=== PATIENT | male | born 1970 | race Caucasian/White ===

== ENCOUNTER 2017-08-15 14:32 | Inpatient (IN) | payer OTHER ==
[~2017-08-15] VITALS: Ht 177.8 cm; Wt 150.9 kg
[2017-08-15] MEDS ORDERED: LISI-661 PO (14:39)
[2017-08-15] MEDS ORDERED: HALO5TAB2 PO (14:39)
[2017-08-15] MEDS ORDERED: SIMV-261 PO (14:39)
[2017-08-15] MEDS ORDERED: DIVA500T52 PO (14:39)
[2017-08-15] MEDS ORDERED: METF500T7 PO (14:39)
[2017-08-15] MEDS ORDERED: INSU100V12 SQ (14:39)
[2017-08-15] MEDS ORDERED: SILD25 PO (14:39)
[2017-08-15] MEDS ORDERED: INSU100I15 SQ (14:39)
[2017-08-15 15:08] LABS: BASOPHILS % (AUTO) 0.8 % (0.0-2.0); HEMATOCRIT 43.7 % (41-53); HEMOGLOBIN 15.2 g/dL (13.5-17.5); LYMPHOCYTES # (AUTO) 2.2 K/uL (1.0-4.8); LYMPHOCYTES % (AUTO) 27.9 % (22.0-44.0); MEAN CORPUSCULAR HEMOGLOBIN 30.3 pg (26.0-34.0); MEAN CORPUSCULAR HGB CONC 34.9 G/dL (31.0-37.0); MEAN CORPUSCULAR VOLUME 87 fL (80-100); MONOCYTES # (AUTO) 0.4 K/uL (0.1-1.0); MONOCYTES % (AUTO) 5.3 % (2.0-9.0); NEUTROPHILS # (AUTO) 5.1 K/uL (1.8-7.7); PLATELET COUNT (AUTO) 211 K/uL (150-450); RED BLOOD CELL COUNT(AUTO) 5.02 MIL/uL (4.50-5.90); RED CELL DISTRIBUTION WIDTH 14.4 % (11.5-14.5)
[2017-08-15 15:19] LABS: ANION GAP 8 mmol/L (8-16); CALCIUM, TOTAL 8.7 mg/dL (8.8-10.5); CARBON DIOXIDE 29 mmol/L (22-29); CHLORIDE 96 mmol/L (98-107); CREATININE 0.84 mg/dL (0.60-1.30); GLOMERULAR FILTR. RATE CALC > 60 mL/min (>60); GLUCOSE,RANDOM 108 mg/dL (70-110); POTASSIUM 4.5 mmol/L (3.5-5.1); SODIUM SERUM 133 mmol/L (136-145); UREA NITROGEN, BLOOD 16 mg/dL (7-18)
[2017-08-15 15:22] LABS: VALPROIC ACID 30 mcg/mL (50-100)
[2017-08-15 15:30] LABS: ALANINE AMINOTRANSFERASE 58 U/L (12-78); ALBUMIN 3.4 g/dL (3.4-5.0); ALKALINE PHOSPHATASE 136 U/L (46-116); ASPARTATE AMINOTRANSFERASE 36 U/L (15-37); TOTAL PROTEIN, SERUM 8.2 g/dL (6.4-8.2)
[2017-08-15] MEDS ORDERED: LORazepam 2 MG/ML VIAL IM ONE (16:30)
[2017-08-15] MEDS ORDERED: HALOPERIDOL LACTATE 5 MG/ML VIAL IM ONE (16:30)
[2017-08-15] MEDS ORDERED: DiphenhydrAMINE HCL 50 MG/ML VIAL IM ONE (16:30)
[2017-08-15 20:13] LABS: AMPHET/METH SCREEN,URINE POSITIVE (NEGATIVE); BARBITURATE SCREEN, URINE NEGATIVE (NEGATIVE); BENZODIAZEPINES SCREEN,URINE NEGATIVE (NEGATIVE); CANNABINOID SCREEN,URINE POSITIVE (NEGATIVE); COCAINE SCREEN,URINE NEGATIVE (NEGATIVE); METHADONE SCREEN, URINE NEGATIVE (NEGATIVE); OPIATE SCREEN,URINE NEGATIVE (NEGATIVE)
[2017-08-15 20:18] LABS: PHENCYCLIDINE SCREEN,URINE NEGATIVE (NEGATIVE)
[2017-08-15 21:12] LABS: GLUCOSE,POINT OF CARE 131 MG/DL (70-110)
[2017-08-15] MEDS ORDERED: ZOLPIDEM TARTRATE 10 MG TABLET PO PRN (22:30)
[2017-08-15] MEDS ORDERED: HALOPERIDOL 5 MG TABLET PO PRN (22:30)
[2017-08-16 07:28] LABS: GLUCOSE,POINT OF CARE 173 MG/DL (70-110)
[2017-08-16 09:15] LABS: CHOL/HDL RATIO 7.1 (4.2-7.3); CHOLESTEROL 233 mg/dL (131-200); HDL CHOLESTEROL 33 mg/dL (40-60); TRIGLYCERIDES 481 mg/dL (15-150)
[2017-08-16 10:50] VITALS: BP 114/16
[2017-08-16] MEDS: DIVALPROEX SODIUM 500 MG ER TABLET PO SCH ×2 (12:28→21:59)
[2017-08-16] MEDS: ESCITALOPRAM OXALATE 20 MG TABLET PO SCH (12:28)
[2017-08-16] MEDS ORDERED: PNEUMOCOCCAL VACCINE POLYVALENT 0.5 ML VIAL [PPSV23] IM ONE (14:45)
[2017-08-16] MEDS ORDERED: DEXTROSE 50%-WATER 25 GM/50 ML SYRINGE IVP PRN (17:15)
[2017-08-16 19:25] VITALS: BP 138/88
[2017-08-16] MEDS ORDERED: IBUPROFEN 400 MG TABLET PO PRN (20:45)
[2017-08-16] MEDS ORDERED: ACETAMINOPHEN 325 MG TABLET PO PRN (20:45)
[2017-08-16] MEDS: OLANZapine 10 MG TABLET PO SCH (21:59)
[2017-08-16] MEDS: INSULIN LISPRO 100 UNITS/ML SQ PRN (22:15)
[2017-08-16 22:21] LABS: GLUCOMETER DEV NAME(LOC) 3EX 1; GLUCOSE,POINT OF CARE 149 MG/DL (70-110)
[2017-08-17 05:44] LABS: GLUCOMETER DEV NAME(LOC) 3EI B; GLUCOSE,POINT OF CARE 151 MG/DL (70-110)
[2017-08-17] MEDS: MetFORMIN HCL 500 MG ER TABLET PO SCH ×2 (07:07→16:37)
[2017-08-17] MEDS: INSULIN LISPRO 100 UNITS/ML SQ PRN ×4 (07:07→20:53)
[2017-08-17 08:10] VITALS: BP 144/77
[2017-08-17] MEDS: SIMVASTATIN 40 MG TABLET PO SCH (08:18)
[2017-08-17] MEDS: ESCITALOPRAM OXALATE 20 MG TABLET PO SCH (08:18)
[2017-08-17] MEDS: DIVALPROEX SODIUM 500 MG ER TABLET PO SCH ×2 (08:18→20:42)
[2017-08-17] MEDS: LISINOPRIL 10 MG TABLET PO SCH (08:18)
[2017-08-17 11:28] LABS: GLUCOMETER DEV NAME(LOC) 3EX 1; GLUCOSE,POINT OF CARE 201 MG/DL (70-110)
[2017-08-17 17:13] LABS: GLUCOMETER DEV NAME(LOC) 3EX 1; GLUCOSE,POINT OF CARE 180 MG/DL (70-110)
[2017-08-17 18:49] VITALS: BP 110/67
[2017-08-17] MEDS: OLANZapine 10 MG TABLET PO SCH (20:42)
[2017-08-17 20:58] LABS: GLUCOMETER DEV NAME(LOC) 3EX 1; GLUCOSE,POINT OF CARE 177 MG/DL (70-110)
[2017-08-18 06:09] LABS: GLUCOMETER DEV NAME(LOC) 3EI B; GLUCOSE,POINT OF CARE 147 MG/DL (70-110)
[2017-08-18] MEDS: MetFORMIN HCL 500 MG ER TABLET PO SCH ×2 (07:14→16:41)
[2017-08-18] MEDS: INSULIN LISPRO 100 UNITS/ML SQ PRN ×3 (07:23→23:23)
[2017-08-18 08:27] VITALS: BP 153/84
[2017-08-18] MEDS: DIVALPROEX SODIUM 500 MG ER TABLET PO SCH ×2 (08:37→20:44)
[2017-08-18] MEDS: LISINOPRIL 10 MG TABLET PO SCH (08:37)
[2017-08-18] MEDS: ESCITALOPRAM OXALATE 20 MG TABLET PO SCH (08:37)
[2017-08-18] MEDS: SIMVASTATIN 40 MG TABLET PO SCH (08:37)
[2017-08-18 11:18] LABS: GLUCOMETER DEV NAME(LOC) 3EX 1; GLUCOSE,POINT OF CARE 203 MG/DL (70-110)
[2017-08-18 16:38] VITALS: BP 135/77
[2017-08-18 17:08] LABS: GLUCOMETER DEV NAME(LOC) 3EX 1; GLUCOSE,POINT OF CARE 131 MG/DL (70-110)
[2017-08-18] MEDS: OLANZapine 10 MG TABLET PO SCH (20:42)
[2017-08-18 21:13] LABS: GLUCOMETER DEV NAME(LOC) 3EX 1; GLUCOSE,POINT OF CARE 151 MG/DL (70-110)
[2017-08-19 05:45] LABS: GLUCOMETER DEV NAME(LOC) 3EI B; GLUCOSE,POINT OF CARE 151 MG/DL (70-110)
[2017-08-19] MEDS: MetFORMIN HCL 500 MG ER TABLET PO SCH ×2 (06:49→17:01)
[2017-08-19] MEDS: INSULIN LISPRO 100 UNITS/ML SQ PRN ×2 (07:02→11:49)
[2017-08-19] MEDS: DIVALPROEX SODIUM 500 MG ER TABLET PO SCH ×2 (08:33→20:37)
[2017-08-19] MEDS: SIMVASTATIN 40 MG TABLET PO SCH (08:34)
[2017-08-19] MEDS: ESCITALOPRAM OXALATE 20 MG TABLET PO SCH (08:34)
[2017-08-19] MEDS: LISINOPRIL 10 MG TABLET PO SCH (08:34)
[2017-08-19] MEDS: AmLODIPine BESYLATE 2.5 MG TABLET PO SCH (08:34)
[2017-08-19 08:55] VITALS: BP 132/72
[2017-08-19 11:19] LABS: GLUCOMETER DEV NAME(LOC) 3EX 1; GLUCOSE,POINT OF CARE 191 MG/DL (70-110)
[2017-08-19] MEDS: LORazepam 2 MG TABLET PO PRN (12:05)
[2017-08-19 16:48] VITALS: BP 106/65
[2017-08-19 17:29] LABS: GLUCOMETER DEV NAME(LOC) 3EX 1; GLUCOSE,POINT OF CARE 130 MG/DL (70-110)
[2017-08-19] MEDS: OLANZapine 10 MG TABLET PO SCH (20:37)
[2017-08-20 05:36] LABS: GLUCOMETER DEV NAME(LOC) 3EI B; GLUCOSE,POINT OF CARE 141 MG/DL (70-110)
[2017-08-20] MEDS: MetFORMIN HCL 500 MG ER TABLET PO SCH ×2 (06:54→17:32)
[2017-08-20] MEDS: INSULIN LISPRO 100 UNITS/ML SQ PRN ×4 (06:55→20:34)
[2017-08-20] MEDS: ESCITALOPRAM OXALATE 20 MG TABLET PO SCH (08:11)
[2017-08-20] MEDS: DIVALPROEX SODIUM 500 MG ER TABLET PO SCH ×2 (08:11→20:22)
[2017-08-20] MEDS: AmLODIPine BESYLATE 2.5 MG TABLET PO SCH (08:12)
[2017-08-20] MEDS: SIMVASTATIN 40 MG TABLET PO SCH (08:12)
[2017-08-20] MEDS: LISINOPRIL 10 MG TABLET PO SCH (08:12)
[2017-08-20 11:27] LABS: GLUCOMETER DEV NAME(LOC) 3EX 1; GLUCOSE,POINT OF CARE 165 MG/DL (70-110)
[2017-08-20] MEDS ORDERED: LOPERAMIDE HCL 2 MG CAPSULE PO PRN (11:30)
[2017-08-20] MEDS: LORazepam 2 MG TABLET PO PRN (12:16)
[2017-08-20 12:41] VITALS: BP 129/74
[2017-08-20 16:48] LABS: GLUCOMETER DEV NAME(LOC) 3EX 1; GLUCOSE,POINT OF CARE 154 MG/DL (70-110)
[2017-08-20 16:54] VITALS: BP 120/66
[2017-08-20] MEDS: OLANZapine 10 MG TABLET PO SCH (20:22)
[2017-08-20 20:33] LABS: GLUCOMETER DEV NAME(LOC) 3EX 1; GLUCOSE,POINT OF CARE 175 MG/DL (70-110)
[2017-08-21 06:04] LABS: GLUCOMETER DEV NAME(LOC) 3EI B; GLUCOSE,POINT OF CARE 138 MG/DL (70-110)
[2017-08-21] MEDS: MetFORMIN HCL 500 MG ER TABLET PO SCH ×2 (07:08→16:33)
[2017-08-21 07:28] LABS: ANION GAP 9 mmol/L (8-16); CALCIUM, TOTAL 8.3 mg/dL (8.8-10.5); CARBON DIOXIDE 27 mmol/L (22-29); CHLORIDE 101 mmol/L (98-107); GLOMERULAR FILTR. RATE CALC > 60 mL/min (>60); GLUCOSE,RANDOM 139 mg/dL (70-110); POTASSIUM 4.1 mmol/L (3.5-5.1); SODIUM SERUM 137 mmol/L (136-145); UREA NITROGEN, BLOOD 20 mg/dL (7-18); VALPROIC ACID 38 mcg/mL (50-100)
[2017-08-21] MEDS: ESCITALOPRAM OXALATE 20 MG TABLET PO SCH (08:11)
[2017-08-21] MEDS: DIVALPROEX SODIUM 500 MG ER TABLET PO SCH ×2 (08:11→20:42)
[2017-08-21] MEDS: AmLODIPine BESYLATE 2.5 MG TABLET PO SCH (08:11)
[2017-08-21] MEDS: SIMVASTATIN 40 MG TABLET PO SCH (08:11)
[2017-08-21] MEDS: LISINOPRIL 10 MG TABLET PO SCH (08:11)
[2017-08-21 08:40] VITALS: BP 121/77
[2017-08-21 11:12] LABS: GLUCOMETER DEV NAME(LOC) 3EX 1; GLUCOSE,POINT OF CARE 191 MG/DL (70-110)
[2017-08-21] MEDS: INSULIN LISPRO 100 UNITS/ML SQ PRN ×2 (11:13→16:49)
[2017-08-21] MEDS: LORazepam 2 MG TABLET PO PRN (16:35)
[2017-08-21 16:48] LABS: GLUCOMETER DEV NAME(LOC) 3EX 1; GLUCOSE,POINT OF CARE 162 MG/DL (70-110)
[2017-08-21 17:00] VITALS: BP 118/70
[2017-08-21] MEDS: OLANZapine 10 MG TABLET PO SCH (20:41)
[2017-08-21 20:53] LABS: GLUCOMETER DEV NAME(LOC) 3EX 1; GLUCOSE,POINT OF CARE 136 MG/DL (70-110)
[2017-08-22 05:54] LABS: GLUCOMETER DEV NAME(LOC) 3EI B; GLUCOSE,POINT OF CARE 128 MG/DL (70-110)
[2017-08-22] MEDS: MetFORMIN HCL 500 MG ER TABLET PO SCH (07:02)
[2017-08-22] MEDS: AmLODIPine BESYLATE 2.5 MG TABLET PO SCH (08:31)
[2017-08-22] MEDS: LISINOPRIL 10 MG TABLET PO SCH (08:31)
[2017-08-22] MEDS: ESCITALOPRAM OXALATE 20 MG TABLET PO SCH (08:31)
[2017-08-22] MEDS: DIVALPROEX SODIUM 500 MG ER TABLET PO SCH (08:31)
[2017-08-22] MEDS: SIMVASTATIN 40 MG TABLET PO SCH (08:31)
[2017-08-22 10:08] VITALS: BP 139/85
[2017-08-22] MEDS: INSULIN LISPRO 100 UNITS/ML SQ PRN (11:11)
[2017-08-22] MEDS ORDERED: DIVA500T52 PO (11:12)
[2017-08-22] MEDS ORDERED: AMLO2.5T PO (11:12)
[2017-08-22 11:13] LABS: GLUCOMETER DEV NAME(LOC) 3EX 1; GLUCOSE,POINT OF CARE 161 MG/DL (70-110)
[2017-08-22] MEDS ORDERED: ESCI20TA PO (11:13)
[2017-08-22] MEDS ORDERED: OLAN10TA3 PO (11:13)
== END 2017-08-22 14:00 | disposition home or self-care (01) | DRG 885 ==
LOC: EMS 14:33 → AHU 08-16 08:06 → 3EX 08-16 19:00
PROVIDERS: ADMIT Psychiatry & Neurology Psychiatry; ATTEND Psychiatry & Neurology Psychiatry
DX: F31.2 Bipolar disorder, current episode manic severe with psychotic features (principal); E87.1 Hypo-osmolality and hyponatremia; F15.90 Other stimulant use, unspecified, uncomplicated; F10.10 Alcohol abuse, uncomplicated; F41.9 Anxiety disorder, unspecified; G47.33 Obstructive sleep apnea (adult) (pediatric); E78.5 Hyperlipidemia, unspecified; F12.90 Cannabis use, unspecified, uncomplicated; E11.9 Type 2 diabetes mellitus without complications; I10 Essential (primary) hypertension; Z79.899 Other long term (current) drug therapy
CPT/HCPCS: 84443; 94660; 96372; 99285; G0480; J1200; J1630; J2060

== ENCOUNTER 2019-07-17 17:25 | Emergency (ER) | payer MEDICAID, OTHER ==
[~2019-07-17] VITALS: Ht 175.3 cm; Wt 136.4 kg
[~2019-07-17 17:25] MED LIST: AMLO2.5T4 PO; DIVA500T52 PO; ESCI20TA PO; LISI-661 PO; METF-911 PO; OLAN10TA3 PO; SIMV-261 PO
[2019-07-17] MEDS ORDERED: INSU100I34 SQ (17:40)
[2019-07-17] MEDS ORDERED: ATOR40TA71 PO (17:40)
[2019-07-17] MEDS ORDERED: ASPI-1522 PO (17:40)
[2019-07-17] MEDS ORDERED: INSU100V36 SQ (17:40)
[2019-07-17] MEDS ORDERED: GABA-1181 PO (17:40)
[2019-07-17 17:54] LABS: BASOPHILS % (AUTO) 0.6 % (0.0-2.0); EOSINOPHILS % (AUTO) 3.2 % (1.0-6.0); HEMATOCRIT 39.2 % (41-53); HEMOGLOBIN 12.7 g/dL (13.5-17.5); LYMPHOCYTES # (AUTO) 1.6 K/uL (1.0-4.8); MEAN CORPUSCULAR HEMOGLOBIN 27.8 pg (26.0-34.0); MEAN CORPUSCULAR HGB CONC 32.4 G/dL (31.0-37.0); MEAN CORPUSCULAR VOLUME 86 fL (80-100); MONOCYTES # (AUTO) 0.4 K/uL (0.1-1.0); MONOCYTES % (AUTO) 5.4 % (2.0-9.0); NEUTROPHILS # (AUTO) 5.3 K/uL (1.8-7.7); NEUTROPHILS % (AUTO) 69.8 % (40.0-70.0); PLATELET COUNT (AUTO) 209 K/uL (150-450); RED BLOOD CELL COUNT(AUTO) 4.57 MIL/uL (4.50-5.90); RED CELL DISTRIBUTION WIDTH 16.2 % (11.5-14.5)
[2019-07-17] MEDS ORDERED: IOVERSOL 350 MG/ML 100 ML VIAL ONE (18:14)
[2019-07-17] MEDS ORDERED: SODIUM CHLORIDE 0.9% 0 ML ONE (18:14)
[2019-07-17] MEDS ORDERED: ACETAMINOPHEN 500 MG TABLET PO ONE (18:15)
[2019-07-17] MEDS ORDERED: KETOROLAC TROMETHAMINE 30 MG/ML VIAL IVP ONE (18:15)
[2019-07-17] MEDS ORDERED: SODIUM CHLORIDE 0.9% 1,000 ML IV ONE (18:15)
[2019-07-17] MEDS ORDERED: GABAPENTIN 100 MG CAPSULE PO ONE (18:45)
[2019-07-17] MEDS ORDERED: QUEtiapine FUMARATE 100 MG TABLET PO ONE (18:45)
[2019-07-17] MEDS ORDERED: LORazepam 2 MG TABLET PO ONE (18:45)
[2019-07-17 19:38] LABS: ANION GAP 14 mmol/L (8-16); CARBON DIOXIDE 25 mmol/L (22-29); CHLORIDE 103 mmol/L (98-107); CREATININE 0.95 mg/dL (0.60-1.30); GLOMERULAR FILTR. RATE CALC > 60 mL/min (>60); GLUCOSE,RANDOM 198 mg/dL (70-110); POTASSIUM 3.8 mmol/L (3.5-5.1); SODIUM SERUM 142 mmol/L (136-145); UREA NITROGEN, BLOOD 10 mg/dL (7-18)
[2019-07-17 19:44] LABS: ALANINE AMINOTRANSFERASE 43 U/L (12-78); ALBUMIN 3.3 g/dL (3.4-5.0); ALKALINE PHOSPHATASE 140 U/L (46-116); ASPARTATE AMINOTRANSFERASE 32 U/L (15-37); BILIRUBIN,TOTAL 0.8 mg/dL (0.1-1.0); LIPASE 83 U/L (73-393); TOTAL PROTEIN, SERUM 7.9 g/dL (6.4-8.2); VALPROIC ACID 21 mcg/mL (50-100)
[2019-07-17 20:15] LABS: APPEARANCE,URINE CLOUDY (CLEAR); GLUCOSE, URINE (UA) NEGATIVE (NEGATIVE); KETONES,URINE TRACE mg/dL (NEGATIVE); LEUKOCYTE ESTERASE ,URINE MODERATE (NEGATIVE); NITRATE,URINE NEGATIVE (NEGATIVE); OCCULT BLOOD,URINE NEGATIVE (NEGATIVE); PROTEIN,URINE POS 1+ (NEGATIVE)
[2019-07-17 20:19] LABS: AMPHET/METH SCREEN,URINE POSITIVE (NEGATIVE); BARBITURATE SCREEN, URINE NEGATIVE (NEGATIVE); BENZODIAZEPINES SCREEN,URINE NEGATIVE (NEGATIVE); BILIRUBIN,URINE PRELIM. POSITIVE (NEGATIVE); CANNABINOID SCREEN,URINE POSITIVE (NEGATIVE); COCAINE SCREEN,URINE NEGATIVE (NEGATIVE); METHADONE SCREEN, URINE NEGATIVE (NEGATIVE); OPIATE SCREEN,URINE NEGATIVE (NEGATIVE)
[2019-07-17 20:20] LABS: PHENCYCLIDINE SCREEN,URINE NEGATIVE (NEGATIVE)
[2019-07-17 20:22] VITALS: BP 138/64
[2019-07-17 20:56] LABS: BACTERIA,URINE Moderate /HPF (None Seen); CALCIUM OXALATE CRYSTALS,UR Moderate /LPF (None Seen); RBC,URINE None Seen /HPF (0-2); SQUAMOUS EPITHELIAL CELL,UR Moderate /LPF (None Seen)
== END 2019-07-17 20:24 | disposition left against medical advice (07) ==
LOC: EMS 17:27
DX: R10.30 Lower abdominal pain, unspecified (principal); E11.9 Type 2 diabetes mellitus without complications; I10 Essential (primary) hypertension; F19.90 Other psychoactive substance use, unspecified, uncomplicated; Z79.899 Other long term (current) drug therapy; Z79.84 Long term (current) use of oral hypoglycemic drugs; Z79.82 Long term (current) use of aspirin; Z79.4 Long term (current) use of insulin
CPT/HCPCS: 36415; 80053; 80164; 80307; 81001; 82962; 83690; 85025; 87086; 96374; 99284; G0480; J1885; J7030; J7050

== ENCOUNTER 2019-09-13 01:03 | Emergency (ER) | payer OTHER ==
[~2019-09-13] VITALS: Ht 177.8 cm; Wt 140.9 kg
[~2019-09-13 01:03] MED LIST changes: +ASPI-1522 PO; +ATOR40TA71 PO; +DIVA-80 PO; -DIVA500T52 PO; -ESCI20TA PO; +ESCI20TA87 PO; +GABA-1181 PO; +INSU100I34 SQ; +INSU100V36 SQ
[2019-09-13 01:25] LABS: GLUCOSE,POINT OF CARE 168 MG/DL (70-110)
[2019-09-13 01:40] LABS: EOSINOPHILS % (AUTO) 4.2 % (1.0-6.0); HEMOGLOBIN 13.1 g/dL (13.5-17.5); LYMPHOCYTES % (AUTO) 25.4 % (22.0-44.0); MEAN CORPUSCULAR VOLUME 87 fL (80-100); MONOCYTES # (AUTO) 0.4 K/uL (0.1-1.0); MONOCYTES % (AUTO) 5.7 % (2.0-9.0); NEUTROPHILS % (AUTO) 63.7 % (40.0-70.0); PLATELET COUNT (AUTO) 179 K/uL (150-450); RED BLOOD CELL COUNT(AUTO) 4.69 MIL/uL (4.50-5.90); RED CELL DISTRIBUTION WIDTH 16.6 % (11.5-14.5)
[2019-09-13 01:49] LABS: ANION GAP 14 mmol/L (8-16); CALCIUM, TOTAL 9.4 mg/dL (8.8-10.5); CARBON DIOXIDE 27 mmol/L (22-29); CHLORIDE 105 mmol/L (98-107); CREATININE 0.95 mg/dL (0.60-1.30); GLOMERULAR FILTR. RATE CALC > 60 mL/min (>60); GLUCOSE,RANDOM 199 mg/dL (70-110); POTASSIUM 4.3 mmol/L (3.5-5.1); SODIUM SERUM 146 mmol/L (136-145); UREA NITROGEN, BLOOD 13 mg/dL (7-18)
[2019-09-13 01:56] LABS: ALANINE AMINOTRANSFERASE 58 U/L (12-78); ALBUMIN 3.3 g/dL (3.4-5.0); ALKALINE PHOSPHATASE 164 U/L (46-116); ASPARTATE AMINOTRANSFERASE 50 U/L (15-37); BILIRUBIN,TOTAL 0.7 mg/dL (0.1-1.0); TOTAL PROTEIN, SERUM 8.1 g/dL (6.4-8.2); VALPROIC ACID < 3 mcg/mL (50-100)
[2019-09-13] MEDS ORDERED: LORazepam 1 MG TABLET PO ONE (02:15)
[2019-09-13 02:44] VITALS: BP 132/80
== END 2019-09-13 02:50 | disposition home or self-care (01) ==
LOC: EMS 01:04
DX: F91.1 Conduct disorder, childhood-onset type (principal); E11.9 Type 2 diabetes mellitus without complications; I10 Essential (primary) hypertension; F19.90 Other psychoactive substance use, unspecified, uncomplicated; Z76.0 Encounter for issue of repeat prescription; Z79.899 Other long term (current) drug therapy; Z79.84 Long term (current) use of oral hypoglycemic drugs; Z79.4 Long term (current) use of insulin
CPT/HCPCS: 36415; 80053; 80164; 82962; 85025; 99283; G0480

== ENCOUNTER 2020-08-10 15:22 | Emergency (ER) | payer OTHER ==
[~2020-08-10] VITALS: Ht 177.8 cm; Wt 145.4 kg
[~2020-08-10 15:22] MED LIST changes: -AMLO2.5T4 PO; +AMLO2.5T96 PO; -LISI-661 PO; +LISI-893 PO; -OLAN10TA3 PO; +OLAN10TA74 PO
[2020-08-10] MEDS ORDERED: LISI-893 PO (15:39)
[2020-08-10] MEDS ORDERED: GLIP5 PO (15:39)
[2020-08-10] MEDS ORDERED: DIVA-112 PO (15:39)
[2020-08-10 15:44] LABS: GLUCOSE,POINT OF CARE 146 MG/DL (70-110)
[2020-08-10 20:59] LABS: BASOPHILS % (AUTO) 0.6 % (0.0-2.0); EOSINOPHILS % (AUTO) 2.9 % (1.0-6.0); HEMOGLOBIN 13.4 g/dL (13.5-17.5); LYMPHOCYTES # (AUTO) 2.5 K/uL (1.0-4.8); LYMPHOCYTES % (AUTO) 26.1 % (22.0-44.0); MEAN CORPUSCULAR HEMOGLOBIN 27.9 pg (26.0-34.0); MEAN CORPUSCULAR HGB CONC 32.6 G/dL (31.0-37.0); MEAN CORPUSCULAR VOLUME 86 fL (80-100); MONOCYTES # (AUTO) 0.5 K/uL (0.1-1.0); MONOCYTES % (AUTO) 5.7 % (2.0-9.0); NEUTROPHILS # (AUTO) 6.2 K/uL (1.8-7.7); NEUTROPHILS % (AUTO) 64.7 % (40.0-70.0); PLATELET COUNT (AUTO) 210 K/uL (150-450); RED BLOOD CELL COUNT(AUTO) 4.79 MIL/uL (4.50-5.90)
[2020-08-10 21:07] LABS: ANION GAP 11 mmol/L (8-16); CALCIUM, TOTAL 9.1 mg/dL (8.8-10.5); CARBON DIOXIDE 26 mmol/L (22-29); CHLORIDE 102 mmol/L (98-107); CREATININE 0.93 mg/dL (0.60-1.30); GLOMERULAR FILTR. RATE CALC > 60 mL/min (>60); GLUCOSE,RANDOM 153 mg/dL (70-110); POTASSIUM 4.3 mmol/L (3.5-5.1); SODIUM SERUM 139 mmol/L (136-145); UREA NITROGEN, BLOOD 14 mg/dL (7-18)
[2020-08-10 21:13] LABS: ALANINE AMINOTRANSFERASE 34 U/L (12-78); ALBUMIN 3.5 g/dL (3.4-5.0); ALKALINE PHOSPHATASE 146 U/L (46-116); ASPARTATE AMINOTRANSFERASE 18 U/L (15-37); BILIRUBIN,TOTAL 0.8 mg/dL (0.1-1.0); TOTAL PROTEIN, SERUM 7.7 g/dL (6.4-8.2)
[2020-08-10 21:35] LABS: COVID AG,FIA SOURCE NASOPHARYNGEAL
[2020-08-10] MEDS ORDERED: LORazepam 2 MG TABLET PO ONE (21:45)
[2020-08-10 22:19] VITALS: BP 127/65
== END 2020-08-10 22:19 | disposition home or self-care (01) ==
LOC: EMS 15:26
DX: F31.9 Bipolar disorder, unspecified (principal); N48.1 Balanitis; E11.9 Type 2 diabetes mellitus without complications; I10 Essential (primary) hypertension; F12.90 Cannabis use, unspecified, uncomplicated; F15.90 Other stimulant use, unspecified, uncomplicated; G89.29 Other chronic pain; R10.9 Unspecified abdominal pain; Z20.822 Contact with and (suspected) exposure to COVID-19
CPT/HCPCS: 36415; 80053; 81002; 82962; 85025; 87426; 99284; G0480

== ENCOUNTER 2020-08-12 09:05 | Inpatient (IN) | payer MEDICAID, OTHER ==
[~2020-08-12] VITALS: Ht 177.8 cm; Wt 169.5 kg
[~2020-08-12 09:05] MED LIST changes: -AMLO2.5T96 PO; +DIVA-112 PO; -DIVA-80 PO; -ESCI20TA87 PO; +GLIP5 PO; -SIMV-261 PO
[2020-08-12] MEDS ORDERED: INSU100V SQ (09:20)
[2020-08-12 10:01] LABS: BASOPHILS % (AUTO) 0.7 % (0.0-2.0); EOSINOPHILS % (AUTO) 2.4 % (1.0-6.0); HEMATOCRIT 40.3 % (41-53); HEMOGLOBIN 13.2 g/dL (13.5-17.5); LYMPHOCYTES # (AUTO) 1.6 K/uL (1.0-4.8); LYMPHOCYTES % (AUTO) 27.5 % (22.0-44.0); MEAN CORPUSCULAR HGB CONC 32.9 G/dL (31.0-37.0); MEAN CORPUSCULAR VOLUME 85 fL (80-100); MONOCYTES # (AUTO) 0.3 K/uL (0.1-1.0); NEUTROPHILS # (AUTO) 3.7 K/uL (1.8-7.7); NEUTROPHILS % (AUTO) 64.4 % (40.0-70.0); PLATELET COUNT (AUTO) 159 K/uL (150-450); RED BLOOD CELL COUNT(AUTO) 4.72 MIL/uL (4.50-5.90); RED CELL DISTRIBUTION WIDTH 16.4 % (11.5-14.5)
[2020-08-12 10:11] LABS: ANION GAP 5 mmol/L (8-16); CALCIUM, TOTAL 9.2 mg/dL (8.8-10.5); CARBON DIOXIDE 31 mmol/L (22-29); CHLORIDE 103 mmol/L (98-107); CREATININE 0.86 mg/dL (0.60-1.30); GLOMERULAR FILTR. RATE CALC > 60 mL/min (>60); GLUCOSE,RANDOM 198 mg/dL (70-110); POTASSIUM 3.9 mmol/L (3.5-5.1); SODIUM SERUM 139 mmol/L (136-145); UREA NITROGEN, BLOOD 13 mg/dL (7-18)
[2020-08-12 10:18] LABS: ALANINE AMINOTRANSFERASE 36 U/L (12-78); ALBUMIN 3.2 g/dL (3.4-5.0); ALKALINE PHOSPHATASE 146 U/L (46-116); ASPARTATE AMINOTRANSFERASE 23 U/L (15-37); TOTAL PROTEIN, SERUM 7.6 g/dL (6.4-8.2); VALPROIC ACID 31 mcg/mL (50-100)
[2020-08-12 10:27] LABS: GLUCOSE,POINT OF CARE 295 MG/DL (70-110)
[2020-08-12 11:52] LABS: AMPHET/METH SCREEN,URINE POSITIVE (NEGATIVE); BARBITURATE SCREEN, URINE NEGATIVE (NEGATIVE); BENZODIAZEPINES SCREEN,URINE NEGATIVE (NEGATIVE); CANNABINOID SCREEN,URINE POSITIVE (NEGATIVE); COCAINE SCREEN,URINE NEGATIVE (NEGATIVE); METHADONE SCREEN, URINE NEGATIVE (NEGATIVE); OPIATE SCREEN,URINE NEGATIVE (NEGATIVE); PHENCYCLIDINE SCREEN,URINE NEGATIVE (NEGATIVE)
[2020-08-12 17:08] LABS: COVID AG,FIA SOURCE NASOPHARYNGEAL
[2020-08-12 19:28] LABS: GLUCOSE,POINT OF CARE 244 MG/DL (70-110)
[2020-08-12 19:46] VITALS: BP 148/82
[2020-08-12] MEDS ORDERED: PNEUMOCOCCAL VACCINE POLYVALENT 0.5 ML VIAL [PPSV23] IM. ONE (20:15)
[2020-08-12] MEDS ORDERED: DEXTROSE 50%-WATER 25 GM/50 ML SYRINGE IVP PRN (20:15)
[2020-08-12] MEDS: INSULIN LISPRO 100 UNITS/ML SQ PRN (21:28)
[2020-08-13] MEDS: LORazepam 2 MG TABLET PO PRN (00:41)
[2020-08-13] MEDS: ZOLPIDEM TARTRATE 10 MG TABLET PO PRN (00:41)
[2020-08-13 00:47] VITALS: BP 134/86
[2020-08-13 06:16] LABS: GLUCOMETER DEV NAME(LOC) 3E.I 2; GLUCOSE,POINT OF CARE 160 MG/DL (70-110)
[2020-08-13] MEDS: MetFORMIN HCL 500 MG TABLET PO SCH ×2 (06:58→17:08)
[2020-08-13] MEDS: INSULIN LISPRO 100 UNITS/ML SQ PRN ×4 (06:59→21:19)
[2020-08-13] MEDS ORDERED: NICOTINE 14 MG/24 HOUR PATCH TD PRN (07:30)
[2020-08-13] MEDS ORDERED: DOCUSATE SODIUM 100 MG CAPSULE PO PRN (07:30)
[2020-08-13] MEDS ORDERED: ALBUTEROL SULFATE HFA 90 MCG/PUFF 8 GM INHALER IH PRN (07:30)
[2020-08-13] MEDS ORDERED: MAGNESIUM HYDROXIDE SUSPENSION 30 ML UDCUP PO PRN (07:30)
[2020-08-13] MEDS ORDERED: ONDANSETRON HCL 4 MG TABLET PO PRN (07:30)
[2020-08-13] MEDS ORDERED: MAG HYDROX/AL HYDROX/SIMETH ES 30 ML SUSPENSION UDCUP PO PRN (07:30)
[2020-08-13] MEDS ORDERED: LOPERAMIDE HCL 2 MG CAPSULE PO PRN (07:30)
[2020-08-13] MEDS ORDERED: PETROLATUM,WHITE 28 GM JELLY TP PRN (07:30)
[2020-08-13] MEDS ORDERED: GuaiFENesin/D-METHORPHAN [SUGAR-FREE] 200-20MG/10 ML SYRUP UDCUP PO PRN (07:30)
[2020-08-13] MEDS ORDERED: CloNIDine HCL 0.1 MG TABLET PO PRN (07:30)
[2020-08-13] MEDS ORDERED: LISINOPRIL 10 MG TABLET PO SCH (09:00)
[2020-08-13 09:54] VITALS: BP 126/61
[2020-08-13] MEDS: LISINOPRIL 10 MG TABLET PO SCH ×2 (10:36→16:41)
[2020-08-13] MEDS: CLOTRIMAZOLE 1% 15 GM CREAM TP SCH ×2 (10:36→17:36)
[2020-08-13] MEDS: ASPIRIN 81 MG DR TABLET PO SCH (10:36)
[2020-08-13 11:56] LABS: GLUCOMETER DEV NAME(LOC) 3E.I 2; GLUCOSE,POINT OF CARE 147 MG/DL (70-110)
[2020-08-13] MEDS: DIVALPROEX SODIUM 500 MG DR TABLET PO SCH (16:40)
[2020-08-13] MEDS: CLOTRIMAZOLE 1% 10 ML SOLUTION TP SCH (16:40)
[2020-08-13 16:43] VITALS: BP 135/82
[2020-08-13 16:45] LABS: GLUCOMETER DEV NAME(LOC) 3E.I 2; GLUCOSE,POINT OF CARE 205 MG/DL (70-110)
[2020-08-13] MEDS: ATORVASTATIN CALCIUM 40 MG TABLET PO SCH (20:18)
[2020-08-13] MEDS: OLANZapine 10 MG TABLET PO SCH (20:18)
[2020-08-13 20:48] LABS: GLUCOMETER DEV NAME(LOC) 3E.I 2; GLUCOSE,POINT OF CARE 158 MG/DL (70-110)
[2020-08-14 05:42] LABS: GLUCOMETER DEV NAME(LOC) 3E.I 2; GLUCOSE,POINT OF CARE 130 MG/DL (70-110)
[2020-08-14] MEDS: MetFORMIN HCL 500 MG TABLET PO SCH ×2 (06:37→16:53)
[2020-08-14 06:56] VITALS: BP 128/72
[2020-08-14] MEDS: IBUPROFEN 400 MG TABLET PO PRN (06:59)
[2020-08-14 07:59] VITALS: BP 132/80
[2020-08-14] MEDS: GABAPENTIN 300 MG CAPSULE PO SCH (09:12)
[2020-08-14] MEDS: ASPIRIN 81 MG DR TABLET PO SCH (09:12)
[2020-08-14] MEDS: LISINOPRIL 10 MG TABLET PO SCH ×2 (09:13→16:16)
[2020-08-14] MEDS: DIVALPROEX SODIUM 500 MG DR TABLET PO SCH ×2 (09:13→16:16)
[2020-08-14] MEDS: CLOTRIMAZOLE 1% 15 GM CREAM TP SCH ×2 (09:14→16:16)
[2020-08-14 10:08] VITALS: BP 130/78
[2020-08-14] MEDS: CLOTRIMAZOLE 1% 10 ML SOLUTION TP SCH ×2 (10:51→16:16)
[2020-08-14] MEDS: INSULIN LISPRO 100 UNITS/ML SQ PRN ×3 (11:43→21:17)
[2020-08-14 11:46] LABS: GLUCOMETER DEV NAME(LOC) 3E.I 2; GLUCOSE,POINT OF CARE 118 MG/DL (70-110)
[2020-08-14 14:35] LABS: GLUCOMETER DEV NAME(LOC) 3E.I 2; GLUCOSE,POINT OF CARE 163 MG/DL (70-110)
[2020-08-14 16:35] LABS: GLUCOMETER DEV NAME(LOC) 3E.I 2; GLUCOSE,POINT OF CARE 212 MG/DL (70-110)
[2020-08-14 16:38] VITALS: BP 121/78
[2020-08-14] MEDS: ATORVASTATIN CALCIUM 40 MG TABLET PO SCH (20:15)
[2020-08-14] MEDS: OLANZapine 10 MG TABLET PO SCH (20:15)
[2020-08-14 20:38] LABS: GLUCOMETER DEV NAME(LOC) 3E.I 2; GLUCOSE,POINT OF CARE 156 MG/DL (70-110)
[2020-08-15 06:08] LABS: GLUCOMETER DEV NAME(LOC) 3E.I 2; GLUCOSE,POINT OF CARE 130 MG/DL (70-110)
[2020-08-15] MEDS: MetFORMIN HCL 500 MG TABLET PO SCH ×2 (06:48→17:05)
[2020-08-15] MEDS: INSULIN LISPRO 100 UNITS/ML SQ PRN ×3 (06:49→18:10)
[2020-08-15 08:28] VITALS: BP 162/90
[2020-08-15] MEDS: GABAPENTIN 300 MG CAPSULE PO SCH (09:19)
[2020-08-15] MEDS: ASPIRIN 81 MG DR TABLET PO SCH (09:19)
[2020-08-15] MEDS: DIVALPROEX SODIUM 500 MG DR TABLET PO SCH ×2 (09:19→17:04)
[2020-08-15] MEDS: LISINOPRIL 10 MG TABLET PO SCH ×2 (09:20→17:04)
[2020-08-15] MEDS: CLOTRIMAZOLE 1% 15 GM CREAM TP SCH ×2 (09:20→17:05)
[2020-08-15] MEDS: CLOTRIMAZOLE 1% 10 ML SOLUTION TP SCH ×2 (11:04→17:05)
[2020-08-15 11:40] LABS: GLUCOMETER DEV NAME(LOC) 3E.I 2; GLUCOSE,POINT OF CARE 163 MG/DL (70-110)
[2020-08-15 13:03] LABS: APPEARANCE,URINE CLOUDY (CLEAR); BILIRUBIN,URINE NEGATIVE (NEGATIVE); GLUCOSE, URINE (UA) NEGATIVE (NEGATIVE); KETONES,URINE TRACE mg/dL (NEGATIVE); LEUKOCYTE ESTERASE ,URINE SMALL (NEGATIVE); NITRATE,URINE NEGATIVE (NEGATIVE); OCCULT BLOOD,URINE LARGE (NEGATIVE); PROTEIN,URINE NEGATIVE (NEGATIVE); UROBILINOGEN,URINE 0.2 mg/dL (<=1.0)
[2020-08-15 13:13] LABS: BACTERIA,URINE None Seen /HPF (None Seen); SQUAMOUS EPITHELIAL CELL,UR Few /LPF (None Seen)
[2020-08-15] MEDS: LORazepam 2 MG TABLET PO PRN (14:01)
[2020-08-15] MEDS: HALOPERIDOL 5 MG TABLET PO PRN (14:06)
[2020-08-15 16:10] VITALS: BP 115/69
[2020-08-15 16:20] LABS: GLUCOMETER DEV NAME(LOC) 3E.I 2; GLUCOSE,POINT OF CARE 195 MG/DL (70-110)
[2020-08-15] MEDS: OLANZapine 10 MG TABLET PO SCH (20:53)
[2020-08-15] MEDS: ATORVASTATIN CALCIUM 40 MG TABLET PO SCH (20:53)
[2020-08-15 21:10] LABS: GLUCOMETER DEV NAME(LOC) 3E.I 2; GLUCOSE,POINT OF CARE 133 MG/DL (70-110)
[2020-08-16 05:39] LABS: GLUCOMETER DEV NAME(LOC) 3E.I 2; GLUCOSE,POINT OF CARE 120 MG/DL (70-110)
[2020-08-16] MEDS: INSULIN LISPRO 100 UNITS/ML SQ PRN ×4 (06:37→21:15)
[2020-08-16] MEDS: MetFORMIN HCL 500 MG TABLET PO SCH ×2 (06:39→17:57)
[2020-08-16 08:00] VITALS: BP 108/58
[2020-08-16] MEDS: LISINOPRIL 10 MG TABLET PO SCH ×2 (09:55→16:35)
[2020-08-16] MEDS: GABAPENTIN 300 MG CAPSULE PO SCH (09:55)
[2020-08-16] MEDS: DIVALPROEX SODIUM 500 MG DR TABLET PO SCH ×2 (09:55→16:34)
[2020-08-16] MEDS: ASPIRIN 81 MG DR TABLET PO SCH (09:55)
[2020-08-16 11:50] LABS: GLUCOMETER DEV NAME(LOC) 3E.I 2; GLUCOSE,POINT OF CARE 136 MG/DL (70-110)
[2020-08-16] MEDS: CLOTRIMAZOLE 1% 15 GM CREAM TP SCH ×2 (14:20→16:35)
[2020-08-16] MEDS: LORazepam 2 MG TABLET PO PRN (14:54)
[2020-08-16 16:33] LABS: GLUCOMETER DEV NAME(LOC) 3E.I 2; GLUCOSE,POINT OF CARE 176 MG/DL (70-110)
[2020-08-16 16:38] VITALS: BP 111/68
[2020-08-16] MEDS: ATORVASTATIN CALCIUM 40 MG TABLET PO SCH (20:30)
[2020-08-16] MEDS: OLANZapine 10 MG TABLET PO SCH (20:30)
[2020-08-16 20:50] LABS: GLUCOMETER DEV NAME(LOC) 3E.I 2; GLUCOSE,POINT OF CARE 224 MG/DL (70-110)
[2020-08-17] MEDS: ZOLPIDEM TARTRATE 10 MG TABLET PO PRN ×2 (00:12→20:56)
[2020-08-17 00:23] VITALS: BP 135/80
[2020-08-17 06:45] LABS: GLUCOMETER DEV NAME(LOC) 3E.I 2; GLUCOSE,POINT OF CARE 121 MG/DL (70-110)
[2020-08-17] MEDS: INSULIN LISPRO 100 UNITS/ML SQ PRN ×3 (06:52→16:58)
[2020-08-17] MEDS: MetFORMIN HCL 500 MG TABLET PO SCH ×2 (06:52→16:45)
[2020-08-17 08:24] VITALS: BP 133/81
[2020-08-17] MEDS: DIVALPROEX SODIUM 500 MG DR TABLET PO SCH ×2 (09:11→16:45)
[2020-08-17] MEDS: LISINOPRIL 10 MG TABLET PO SCH ×2 (09:11→16:45)
[2020-08-17] MEDS: ASPIRIN 81 MG DR TABLET PO SCH (09:11)
[2020-08-17] MEDS: CLOTRIMAZOLE 1% 15 GM CREAM TP SCH ×2 (09:11→16:45)
[2020-08-17] MEDS: GABAPENTIN 300 MG CAPSULE PO SCH (09:11)
[2020-08-17] MEDS: LORazepam 2 MG TABLET PO PRN (09:12)
[2020-08-17 11:14] LABS: GLUCOMETER DEV NAME(LOC) 3E.I 2; GLUCOSE,POINT OF CARE 156 MG/DL (70-110)
[2020-08-17] MEDS: OLANZapine 5 MG TABLET PO SCH (13:43)
[2020-08-17 16:22] LABS: GLUCOMETER DEV NAME(LOC) 3E.I 2; GLUCOSE,POINT OF CARE 178 MG/DL (70-110)
[2020-08-17 16:23] VITALS: BP 121/89
[2020-08-17] MEDS: TAMSULOSIN HCL 0.4 MG CAPSULE PO SCH (20:54)
[2020-08-17] MEDS: OLANZapine 10 MG TABLET PO SCH (20:54)
[2020-08-17] MEDS: ATORVASTATIN CALCIUM 40 MG TABLET PO SCH (20:54)
[2020-08-17 21:21] LABS: GLUCOMETER DEV NAME(LOC) 3E.I 2; GLUCOSE,POINT OF CARE 126 MG/DL (70-110)
[2020-08-18 00:10] VITALS: BP 110/84
[2020-08-18] MEDS: LORazepam 2 MG TABLET PO PRN ×2 (00:10→11:39)
[2020-08-18 06:17] LABS: GLUCOMETER DEV NAME(LOC) 3E.I 2; GLUCOSE,POINT OF CARE 143 MG/DL (70-110)
[2020-08-18] MEDS: MetFORMIN HCL 500 MG TABLET PO SCH ×2 (06:43→16:55)
[2020-08-18] MEDS: INSULIN LISPRO 100 UNITS/ML SQ PRN ×4 (06:45→21:07)
[2020-08-18] MEDS: ASPIRIN 81 MG DR TABLET PO SCH (08:01)
[2020-08-18] MEDS: CLOTRIMAZOLE 1% 15 GM CREAM TP SCH ×2 (08:01→16:55)
[2020-08-18] MEDS: LISINOPRIL 10 MG TABLET PO SCH ×2 (08:01→16:56)
[2020-08-18] MEDS: DIVALPROEX SODIUM 500 MG DR TABLET PO SCH ×2 (08:01→16:55)
[2020-08-18] MEDS: OLANZapine 5 MG TABLET PO SCH (08:01)
[2020-08-18] MEDS: GABAPENTIN 300 MG CAPSULE PO SCH (08:01)
[2020-08-18 08:28] VITALS: BP 110/59
[2020-08-18 11:38] LABS: GLUCOMETER DEV NAME(LOC) 3E.I 2; GLUCOSE,POINT OF CARE 144 MG/DL (70-110)
[2020-08-18 16:00] VITALS: BP 128/73
[2020-08-18 16:48] VITALS: BP 128/73
[2020-08-18 16:54] LABS: GLUCOMETER DEV NAME(LOC) 3E.I 2; GLUCOSE,POINT OF CARE 176 MG/DL (70-110)
[2020-08-18 20:27] LABS: GLUCOMETER DEV NAME(LOC) 3E.I 2; GLUCOSE,POINT OF CARE 158 MG/DL (70-110)
[2020-08-18] MEDS: TAMSULOSIN HCL 0.4 MG CAPSULE PO SCH (21:04)
[2020-08-18] MEDS: ATORVASTATIN CALCIUM 40 MG TABLET PO SCH (21:04)
[2020-08-18] MEDS: OLANZapine 10 MG TABLET PO SCH (21:04)
[2020-08-19] VITALS (7 sets, daily range): BP systolic 110–136; BP diastolic 65–80
[2020-08-19] MEDS: LORazepam 2 MG TABLET PO PRN ×3 (00:22→20:19)
[2020-08-19 05:34] LABS: GLUCOMETER DEV NAME(LOC) 3E.I 2; GLUCOSE,POINT OF CARE 133 MG/DL (70-110)
[2020-08-19] MEDS: MetFORMIN HCL 500 MG TABLET PO SCH ×2 (07:00→16:30)
[2020-08-19] MEDS: OLANZapine 5 MG TABLET PO SCH (08:29)
[2020-08-19] MEDS: DIVALPROEX SODIUM 500 MG DR TABLET PO SCH ×2 (08:29→16:30)
[2020-08-19] MEDS: LISINOPRIL 10 MG TABLET PO SCH ×2 (08:29→16:30)
[2020-08-19] MEDS: GABAPENTIN 300 MG CAPSULE PO SCH (08:29)
[2020-08-19] MEDS: ASPIRIN 81 MG DR TABLET PO SCH (08:29)
[2020-08-19] MEDS: CLOTRIMAZOLE 1% 15 GM CREAM TP SCH ×2 (08:32→16:30)
[2020-08-19 11:50] LABS: GLUCOMETER DEV NAME(LOC) 3E.I 2; GLUCOSE,POINT OF CARE 157 MG/DL (70-110)
[2020-08-19] MEDS: INSULIN LISPRO 100 UNITS/ML SQ PRN ×3 (11:51→21:33)
[2020-08-19 16:54] LABS: GLUCOMETER DEV NAME(LOC) 3E.I 2; GLUCOSE,POINT OF CARE 195 MG/DL (70-110)
[2020-08-19] MEDS: IBUPROFEN 400 MG TABLET PO PRN (18:44)
[2020-08-19 19:02] LABS: COVID AG,FIA SOURCE NASAL SWAB
[2020-08-19] MEDS: TAMSULOSIN HCL 0.4 MG CAPSULE PO SCH (20:09)
[2020-08-19] MEDS: ATORVASTATIN CALCIUM 40 MG TABLET PO SCH (20:09)
[2020-08-19] MEDS: OLANZapine 10 MG TABLET PO SCH (20:09)
[2020-08-19] MEDS: NYSTATIN 15 GM POWDER BOTTLE TP SCH (20:20)
[2020-08-19 21:12] LABS: GLUCOMETER DEV NAME(LOC) 3E.I 2; GLUCOSE,POINT OF CARE 172 MG/DL (70-110)
[2020-08-20 06:19] LABS: GLUCOMETER DEV NAME(LOC) 3E.I 2; GLUCOSE,POINT OF CARE 146 MG/DL (70-110)
[2020-08-20] MEDS: MetFORMIN HCL 500 MG TABLET PO SCH ×2 (06:54→17:10)
[2020-08-20] MEDS: INSULIN LISPRO 100 UNITS/ML SQ PRN ×4 (06:56→21:20)
[2020-08-20] MEDS: GABAPENTIN 300 MG CAPSULE PO SCH (08:03)
[2020-08-20] MEDS: DIVALPROEX SODIUM 500 MG DR TABLET PO SCH ×2 (08:03→16:15)
[2020-08-20] MEDS: ASPIRIN 81 MG DR TABLET PO SCH (08:03)
[2020-08-20] MEDS: LORazepam 2 MG TABLET PO PRN ×2 (08:03→23:44)
[2020-08-20] MEDS: LISINOPRIL 10 MG TABLET PO SCH ×2 (08:03→16:15)
[2020-08-20] MEDS: OLANZapine 5 MG TABLET PO SCH (08:04)
[2020-08-20 08:43] VITALS: BP 117/67
[2020-08-20 11:53] LABS: GLUCOMETER DEV NAME(LOC) 3E.I 2; GLUCOSE,POINT OF CARE 174 MG/DL (70-110)
[2020-08-20] MEDS: NYSTATIN 15 GM POWDER BOTTLE TP SCH ×2 (13:48→16:15)
[2020-08-20 16:00] VITALS: BP 112/60
[2020-08-20 16:32] LABS: GLUCOMETER DEV NAME(LOC) 3E.I 2; GLUCOSE,POINT OF CARE 162 MG/DL (70-110)
[2020-08-20] MEDS: TAMSULOSIN HCL 0.4 MG CAPSULE PO SCH (20:27)
[2020-08-20] MEDS: OLANZapine 10 MG TABLET PO SCH (20:27)
[2020-08-20] MEDS: ATORVASTATIN CALCIUM 40 MG TABLET PO SCH (20:27)
[2020-08-20 20:33] VITALS: BP 135/72
[2020-08-20] MEDS: ACETAMINOPHEN 325 MG TABLET PO PRN (20:33)
[2020-08-20] MEDS ORDERED: HYDROCORTISONE 25 MG RECTAL SUPPOSITORY PR SCH (21:00)
[2020-08-20] MEDS: CALCIUM POLYCARBOPHIL 625 MG TABLET PO SCH (21:21)
[2020-08-20 21:33] VITALS: BP 125/70
[2020-08-20 22:17] LABS: GLUCOMETER DEV NAME(LOC) 3E.I 2; GLUCOSE,POINT OF CARE 213 MG/DL (70-110)
[2020-08-20 23:44] VITALS: BP 112/71
[2020-08-21 06:05] LABS: GLUCOMETER DEV NAME(LOC) 3E.I 2; GLUCOSE,POINT OF CARE 189 MG/DL (70-110)
[2020-08-21] MEDS: INSULIN LISPRO 100 UNITS/ML SQ PRN ×4 (06:47→21:13)
[2020-08-21] MEDS: MetFORMIN HCL 500 MG TABLET PO SCH ×2 (06:47→17:08)
[2020-08-21 08:31] VITALS: BP 129/64
[2020-08-21] MEDS: CALCIUM POLYCARBOPHIL 625 MG TABLET PO SCH ×2 (08:39→16:23)
[2020-08-21] MEDS: OLANZapine 5 MG TABLET PO SCH (08:39)
[2020-08-21] MEDS: LISINOPRIL 10 MG TABLET PO SCH ×2 (08:40→16:24)
[2020-08-21] MEDS: ASPIRIN 81 MG DR TABLET PO SCH (08:40)
[2020-08-21] MEDS: NYSTATIN 15 GM POWDER BOTTLE TP SCH ×2 (08:40→16:23)
[2020-08-21] MEDS: DIVALPROEX SODIUM 500 MG DR TABLET PO SCH ×2 (08:40→16:24)
[2020-08-21] MEDS: GABAPENTIN 300 MG CAPSULE PO SCH (08:40)
[2020-08-21] MEDS: LORazepam 2 MG TABLET PO PRN (08:58)
[2020-08-21 11:11] LABS: GLUCOMETER DEV NAME(LOC) 3E.I 2; GLUCOSE,POINT OF CARE 194 MG/DL (70-110)
[2020-08-21] MEDS: HYDROCORTISONE 25 MG RECTAL SUPPOSITORY PR PRN (13:36)
[2020-08-21 16:00] VITALS: BP 129/77
[2020-08-21 16:45] LABS: GLUCOMETER DEV NAME(LOC) 3E.I 2; GLUCOSE,POINT OF CARE 230 MG/DL (70-110)
[2020-08-21] MEDS: TAMSULOSIN HCL 0.4 MG CAPSULE PO SCH (20:19)
[2020-08-21] MEDS: OLANZapine 10 MG TABLET PO SCH (20:19)
[2020-08-21] MEDS: ATORVASTATIN CALCIUM 40 MG TABLET PO SCH (20:19)
[2020-08-21 20:51] LABS: GLUCOMETER DEV NAME(LOC) 3E.I 2; GLUCOSE,POINT OF CARE 163 MG/DL (70-110)
[2020-08-22] MEDS: LORazepam 2 MG TABLET PO PRN ×3 (00:03→14:33)
[2020-08-22 01:07] VITALS: BP 124/60
[2020-08-22 05:48] LABS: GLUCOMETER DEV NAME(LOC) 3E.I 2; GLUCOSE,POINT OF CARE 158 MG/DL (70-110)
[2020-08-22] MEDS: MetFORMIN HCL 500 MG TABLET PO SCH ×2 (06:54→17:14)
[2020-08-22] MEDS: INSULIN LISPRO 100 UNITS/ML SQ PRN ×3 (06:57→17:40)
[2020-08-22] MEDS: DIVALPROEX SODIUM 500 MG DR TABLET PO SCH ×2 (08:14→16:41)
[2020-08-22] MEDS: OLANZapine 5 MG TABLET PO SCH (08:14)
[2020-08-22] MEDS: NYSTATIN 15 GM POWDER BOTTLE TP SCH ×2 (08:14→16:40)
[2020-08-22] MEDS: LISINOPRIL 10 MG TABLET PO SCH ×2 (08:14→16:41)
[2020-08-22] MEDS: ASPIRIN 81 MG DR TABLET PO SCH (08:14)
[2020-08-22] MEDS: CALCIUM POLYCARBOPHIL 625 MG TABLET PO SCH ×2 (08:14→16:40)
[2020-08-22] MEDS: GABAPENTIN 300 MG CAPSULE PO SCH (08:14)
[2020-08-22 09:13] VITALS: BP 117/67
[2020-08-22 11:13] LABS: GLUCOMETER DEV NAME(LOC) 3E.I 2; GLUCOSE,POINT OF CARE 192 MG/DL (70-110)
[2020-08-22 16:39] VITALS: BP 132/82
[2020-08-22 16:43] LABS: GLUCOMETER DEV NAME(LOC) 3E.I 2; GLUCOSE,POINT OF CARE 188 MG/DL (70-110)
[2020-08-22] MEDS: TAMSULOSIN HCL 0.4 MG CAPSULE PO SCH (20:06)
[2020-08-22] MEDS: OLANZapine 10 MG TABLET PO SCH (20:06)
[2020-08-22] MEDS: ATORVASTATIN CALCIUM 40 MG TABLET PO SCH (20:06)
[2020-08-22] MEDS: ZOLPIDEM TARTRATE 10 MG TABLET PO PRN (21:51)
[2020-08-22 21:57] LABS: GLUCOMETER DEV NAME(LOC) 3E.I 2; GLUCOSE,POINT OF CARE 140 MG/DL (70-110)
[2020-08-22] MEDS: HYDROCORTISONE 25 MG RECTAL SUPPOSITORY PR PRN (22:33)
[2020-08-23 05:27] LABS: GLUCOMETER DEV NAME(LOC) 3E.I 2; GLUCOSE,POINT OF CARE 151 MG/DL (70-110)
[2020-08-23] MEDS: INSULIN LISPRO 100 UNITS/ML SQ PRN ×3 (07:03→17:10)
[2020-08-23] MEDS: MetFORMIN HCL 500 MG TABLET PO SCH ×2 (07:04→16:38)
[2020-08-23] MEDS: NYSTATIN 15 GM POWDER BOTTLE TP SCH ×2 (08:20→16:39)
[2020-08-23] MEDS: LISINOPRIL 10 MG TABLET PO SCH ×2 (08:21→16:37)
[2020-08-23] MEDS: GABAPENTIN 300 MG CAPSULE PO SCH (08:21)
[2020-08-23] MEDS: DIVALPROEX SODIUM 500 MG DR TABLET PO SCH ×2 (08:21→16:37)
[2020-08-23] MEDS: OLANZapine 5 MG TABLET PO SCH (08:21)
[2020-08-23] MEDS: ASPIRIN 81 MG DR TABLET PO SCH (08:21)
[2020-08-23] MEDS: LORazepam 2 MG TABLET PO PRN ×2 (08:21→19:41)
[2020-08-23] MEDS: CALCIUM POLYCARBOPHIL 625 MG TABLET PO SCH ×2 (08:21→16:37)
[2020-08-23 08:34] VITALS: BP 145/75
[2020-08-23 11:33] LABS: GLUCOMETER DEV NAME(LOC) 3E.I 2; GLUCOSE,POINT OF CARE 172 MG/DL (70-110)
[2020-08-23] MEDS: HYDROCORTISONE 25 MG RECTAL SUPPOSITORY PR PRN (14:40)
[2020-08-23] MEDS: ACETAMINOPHEN 325 MG TABLET PO PRN (14:42)
[2020-08-23 15:42] VITALS: BP 136/83
[2020-08-23 16:18] VITALS: BP 136/87
[2020-08-23 16:54] LABS: GLUCOMETER DEV NAME(LOC) 3E.I 2; GLUCOSE,POINT OF CARE 215 MG/DL (70-110)
[2020-08-23 19:41] VITALS: BP 136/83
[2020-08-23] MEDS: OLANZapine 10 MG TABLET PO SCH (20:25)
[2020-08-23] MEDS: TAMSULOSIN HCL 0.4 MG CAPSULE PO SCH (20:25)
[2020-08-23] MEDS: ATORVASTATIN CALCIUM 40 MG TABLET PO SCH (20:25)
[2020-08-23 20:29] LABS: GLUCOMETER DEV NAME(LOC) 3E.I 2; GLUCOSE,POINT OF CARE 245 MG/DL (70-110)
[2020-08-23 20:41] VITALS: BP 133/80
[2020-08-24 00:02] VITALS: BP 135/71
[2020-08-24] MEDS: LORazepam 2 MG TABLET PO PRN ×4 (00:03→23:34)
[2020-08-24] MEDS: ZOLPIDEM TARTRATE 10 MG TABLET PO PRN ×2 (00:03→21:42)
[2020-08-24 06:19] LABS: GLUCOMETER DEV NAME(LOC) 3E.I 2; GLUCOSE,POINT OF CARE 281 MG/DL (70-110)
[2020-08-24] MEDS: MetFORMIN HCL 500 MG TABLET PO SCH ×2 (06:58→17:16)
[2020-08-24] MEDS: INSULIN LISPRO 100 UNITS/ML SQ PRN ×4 (07:00→20:12)
[2020-08-24] MEDS: NYSTATIN 15 GM POWDER BOTTLE TP SCH ×2 (08:32→17:16)
[2020-08-24] MEDS: LISINOPRIL 10 MG TABLET PO SCH ×2 (08:33→17:15)
[2020-08-24] MEDS: GABAPENTIN 300 MG CAPSULE PO SCH (08:33)
[2020-08-24] MEDS: OLANZapine 5 MG TABLET PO SCH (08:33)
[2020-08-24] MEDS: ASPIRIN 81 MG DR TABLET PO SCH (08:33)
[2020-08-24] MEDS: DIVALPROEX SODIUM 500 MG DR TABLET PO SCH ×2 (08:33→17:15)
[2020-08-24] MEDS: CALCIUM POLYCARBOPHIL 625 MG TABLET PO SCH ×2 (08:43→17:16)
[2020-08-24 08:51] VITALS: BP 112/65
[2020-08-24 11:23] LABS: GLUCOMETER DEV NAME(LOC) 3E.I 2; GLUCOSE,POINT OF CARE 180 MG/DL (70-110)
[2020-08-24] MEDS: IBUPROFEN 400 MG TABLET PO PRN (14:58)
[2020-08-24 15:58] VITALS: BP 115/79
[2020-08-24 16:26] LABS: GLUCOMETER DEV NAME(LOC) 3E.I 2; GLUCOSE,POINT OF CARE 286 MG/DL (70-110)
[2020-08-24 16:31] VITALS: BP 101/79
[2020-08-24] MEDS: HALOPERIDOL 5 MG TABLET PO PRN ×2 (18:51→23:35)
[2020-08-24] MEDS: OLANZapine 10 MG TABLET PO SCH (20:02)
[2020-08-24] MEDS: ATORVASTATIN CALCIUM 40 MG TABLET PO SCH (20:02)
[2020-08-24] MEDS: TAMSULOSIN HCL 0.4 MG CAPSULE PO SCH (20:02)
[2020-08-24 20:22] LABS: GLUCOMETER DEV NAME(LOC) 3E.I 2; GLUCOSE,POINT OF CARE 158 MG/DL (70-110)
[2020-08-24 23:30] VITALS: BP 106/69
[2020-08-25] MEDS: INSULIN LISPRO 100 UNITS/ML SQ PRN ×4 (06:40→20:41)
[2020-08-25 06:50] LABS: GLUCOMETER DEV NAME(LOC) 3E.I 2; GLUCOSE,POINT OF CARE 134 MG/DL (70-110)
[2020-08-25] MEDS: MetFORMIN HCL 500 MG TABLET PO SCH ×2 (06:54→16:59)
[2020-08-25] MEDS: GABAPENTIN 300 MG CAPSULE PO SCH (07:50)
[2020-08-25] MEDS: DIVALPROEX SODIUM 500 MG DR TABLET PO SCH ×2 (07:50→16:59)
[2020-08-25] MEDS: OLANZapine 5 MG TABLET PO SCH (07:50)
[2020-08-25] MEDS: NYSTATIN 15 GM POWDER BOTTLE TP SCH ×2 (07:50→16:58)
[2020-08-25] MEDS: ASPIRIN 81 MG DR TABLET PO SCH (07:50)
[2020-08-25] MEDS: LORazepam 2 MG TABLET PO PRN (07:50)
[2020-08-25] MEDS: CALCIUM POLYCARBOPHIL 625 MG TABLET PO SCH ×2 (07:51→16:58)
[2020-08-25] MEDS: LISINOPRIL 10 MG TABLET PO SCH ×2 (07:51→16:59)
[2020-08-25 08:35] VITALS: BP 138/76
[2020-08-25 11:19] LABS: GLUCOMETER DEV NAME(LOC) 3E.I 2; GLUCOSE,POINT OF CARE 232 MG/DL (70-110)
[2020-08-25 16:27] VITALS: BP 115/77
[2020-08-25 16:33] LABS: GLUCOMETER DEV NAME(LOC) 3E.I 2; GLUCOSE,POINT OF CARE 250 MG/DL (70-110)
[2020-08-25] MEDS: TAMSULOSIN HCL 0.4 MG CAPSULE PO SCH (20:12)
[2020-08-25] MEDS: ATORVASTATIN CALCIUM 40 MG TABLET PO SCH (20:12)
[2020-08-25] MEDS: OLANZapine 10 MG TABLET PO SCH (20:12)
[2020-08-25 20:13] VITALS: BP 117/77
[2020-08-25] MEDS: IBUPROFEN 400 MG TABLET PO PRN (20:13)
[2020-08-25 20:34] LABS: GLUCOMETER DEV NAME(LOC) 3E.I 2; GLUCOSE,POINT OF CARE 243 MG/DL (70-110)
[2020-08-25 21:13] VITALS: BP 115/77
[2020-08-26 02:42] VITALS: BP 159/85
[2020-08-26] MEDS: LORazepam 2 MG TABLET PO PRN ×2 (02:42→11:59)
[2020-08-26] MEDS: ACETAMINOPHEN 325 MG TABLET PO PRN (02:42)
[2020-08-26 06:40] LABS: GLUCOMETER DEV NAME(LOC) 3E.I 2; GLUCOSE,POINT OF CARE 153 MG/DL (70-110)
[2020-08-26] MEDS: MetFORMIN HCL 500 MG TABLET PO SCH (06:46)
[2020-08-26] MEDS: INSULIN LISPRO 100 UNITS/ML SQ PRN ×3 (06:48→17:16)
[2020-08-26] MEDS: ASPIRIN 81 MG DR TABLET PO SCH (09:16)
[2020-08-26] MEDS: OLANZapine 5 MG TABLET PO SCH (09:16)
[2020-08-26] MEDS: DIVALPROEX SODIUM 500 MG DR TABLET PO SCH ×2 (09:16→17:12)
[2020-08-26] MEDS: LISINOPRIL 10 MG TABLET PO SCH ×2 (09:17→17:13)
[2020-08-26] MEDS: CALCIUM POLYCARBOPHIL 625 MG TABLET PO SCH ×2 (09:17→17:13)
[2020-08-26] MEDS: GABAPENTIN 300 MG CAPSULE PO SCH (09:17)
[2020-08-26] MEDS: NYSTATIN 15 GM POWDER BOTTLE TP SCH ×2 (09:17→17:00)
[2020-08-26 09:21] VITALS: BP 113/61
[2020-08-26 11:21] LABS: GLUCOMETER DEV NAME(LOC) 3E.I 2; GLUCOSE,POINT OF CARE 180 MG/DL (70-110)
[2020-08-26] MEDS: IBUPROFEN 400 MG TABLET PO PRN (11:57)
[2020-08-26] MEDS ORDERED: TraMADol HCL 50 MG TABLET PO PRN (13:15)
[2020-08-26] MEDS ORDERED: BACITRACIN 28 GM OINTMENT TP PRN (13:15)
[2020-08-26] MEDS ORDERED: NYST15PO4 TP (14:18)
[2020-08-26] MEDS ORDERED: CALC625T PO (14:18)
[2020-08-26] MEDS ORDERED: NYST30CR9 TP (14:18)
[2020-08-26] MEDS ORDERED: TAMS-13 PO (14:21)
[2020-08-26] MEDS ORDERED: OLAN5TAB52 PO (14:21)
[2020-08-26 17:08] LABS: GLUCOMETER DEV NAME(LOC) 3E.I 2; GLUCOSE,POINT OF CARE 268 MG/DL (70-110)
== END 2020-08-26 17:45 | disposition home or self-care (01) | DRG 750 ==
LOC: EMS 09:12 → 3EI 19:30
PROVIDERS: ADMIT Psychiatry & Neurology Child & Adolescent Psychiatry; ATTEND Psychiatry & Neurology Child & Adolescent Psychiatry
DX: F20.9 Schizophrenia, unspecified (principal); R45.851 Suicidal ideations; E66.01 Morbid (severe) obesity due to excess calories; K76.0 Fatty (change of) liver, not elsewhere classified; F31.9 Bipolar disorder, unspecified; E11.9 Type 2 diabetes mellitus without complications; F41.9 Anxiety disorder, unspecified; I10 Essential (primary) hypertension; E78.5 Hyperlipidemia, unspecified; Z85.038 Personal history of other malignant neoplasm of large intestine; G47.33 Obstructive sleep apnea (adult) (pediatric); Z68.43 Body mass index [BMI] 50.0-59.9, adult; F17.210 Nicotine dependence, cigarettes, uncomplicated; F12.90 Cannabis use, unspecified, uncomplicated; F15.10 Other stimulant abuse, uncomplicated; N13.2 Hydronephrosis with renal and ureteral calculous obstruction; Z59.0 Homelessness; M54.9 Dorsalgia, unspecified; Z20.822 Contact with and (suspected) exposure to COVID-19
CPT/HCPCS: 76770; 80053; 80164; 81001; 82271; 82962; 85025; 87077; 87086; 87186; 94660; 99285; G0480